=== PATIENT | female | born 1960 | race Caucasian/White ===

== ENCOUNTER 2016-11-14 15:11 | Emergency (ER) | payer OTHER ==
[~2016-11-14] VITALS: Ht 165.1 cm; Wt 68.0 kg
--- NOTE | 2016-11-14 16:48 | ED PSYCHIATRIC COMPLAINT ---
History of Present Illness General Chief Complaint: Psychiatric Related Complaint Stated Complaint: ? PTSD Source: patient Exam Limitations: no limitations Vital Signs & Intake/Output Vital Signs & Intake/Output Vital Signs Date Time Temp Pulse Resp B/P Pulse O2 O2 Flow FiO2 Ox Delivery Rate 11/15 1931 97.3 75 20 121/70 98 Room Air 11/14 1900 Room Air 11/14 1517 98.2 97 20 133/87 97 Room Air Allergies Coded Allergies: MDX - PCN (penicillin) (PCN (PENICILLIN)) (HIVES 11/23/12) Uncoded Allergies: ANOTHER ANTIBIOTIC (SEVERE GI UPSET 11/23/12) Reconcile Medications Hydroxyzine HCl 25 MG TABLET 1 TAB PO TID PRN anxiety Triage Note: PT STATES SHE HAS BEEN UNDER A LOT OF STRESS LATELY AND SHE THINKS SHE MAY HAVE PTSD. STATES SHE FEELS LIKE SHE IS GOING TO LOSE IT. PT DENIES SI/HI Triage Nurses Notes Reviewed? yes HPI: Patient presents for evaluation of anxiety. Patient states that she "has been struggling with trauma feelings". She states that she has been having intermittent episodes like this over the past 6 months. She sees a therapist and was prescribed propranolol but this does not seem to be helping. She states she had a severe episode today prompting her to be evaluated in the emergency department. She does somewhat reluctantly admit to suicidal ideation and insinuates she has had a plan but does not wish to talk about it. She states she has no real intent on suicide however. She denies homicidal ideation. She likewise denies alcohol or drug use. She is a nonsmoker. Symptoms have Become more and more severe. Nothing seems to make her feel better. Past History Travel History Traveled to [place] past 21 day No Medical History Any Pertinent Medical History? see below for history Gastrointestinal: GERD Surgical History Surgical History: non-contributory Psychosocial History What is your primary language Slovenian Tobacco Use: Never used ETOH Use: denies use Illicit Drug Use: denies illicit drug use Family History Hx Contributory? No Review of Systems Review of Systems Constitutional: Reports: no symptoms. EENTM: Reports: no symptoms. Respiratory: Reports: no symptoms. Cardiovascular: Reports: no symptoms. GI: Reports: no symptoms. Genitourinary: Reports: no symptoms. Musculoskeletal: Reports: no symptoms. Skin: Reports: no symptoms. Neurological/Psychological: Reports: see HPI. Hematologic/Endocrine: Reports: no symptoms. Immunologic/Allergic: Reports: no symptoms. All Other Systems: Reviewed and Negative Physical Exam Physical Exam General Appearance: see below Neurological/Psychiatric: see below Comments: General: Alert, calm, cooperative Head: Normocephalic, atraumatic Eyes: Normal inspection, no nystagmus, EOMI Ears: Normal inspection Nose: Normal inspection Throat: Moist mucosa Neck: Supple, no goiter Heart: Regular rate and rhythm, no murmurs rubs or gallops Lungs: Clear to auscultation bilaterally with good air entry Abdomen: Soft nontender nondistended, normal bowel sounds Chest: Nontender Extremities: Normal range of motion grossly, no tremors present, no cyanosis clubbing or edema of the upper extremities Neurologic: cranial nerves II through XII grossly intact, speech clear, gait normal Psychiatric: No apparent delusions or hallucinations, no pressured speech or thought blocking, depressed affect SAD PERSONS Done? deferred to crisis Progress Differential Diagnosis: depression, anxiety, bipolar, personality disorder Plan of Care: Orders Procedure Date/time Status Continuous Observation Monitor 11/14 1830 Active URINE DRUG SCREEN FOR ER ONLY 11/14 164 Complete ETHANOL 11/14 164 Complete CBC WITHOUT DIFFERENTIAL 11/14 164 Complete BASIC METABOLIC PANEL 11/14 164 Complete ED CRISIS PSYCH CONSULT 11/14 164 Active Current Medications Sig/Maria A Start time Last Medication Dose Stop Time Status Admin Hydroxyzine HCl 25 MG ONCE ONE 11/14 2044 UNVr (Atarax) 11/14 2045 Laboratory Tests 11/14/16 1725: Urine Opiates Screen < 100.00, Methadone Screen < 40, Barbiturate Screen < 60, Ur Phencyclidine Scrn < 6.00, Amphetamines Screen < 100, U Benzodiazepines Scrn < 85, Urine Cocaine Screen < 50, Urine Cannabis Screen < 5.00 11/14/16 1715: Anion Gap 14, Estimated GFR > 60, BUN/Creatinine Ratio 35.0 H, Glucose 94, Calcium 9.4, CBC w Diff NO MAN DIFF REQ, RBC 4.48, MCV 90.9, MCH 31.5 H, RDW 12.8, MPV 8.0, Gran % 58.2, Lymphocytes % 33.1, Monocytes % 7.7, Eosinophils % 0.6, Basophils % 0.4, Absolute Granulocytes 2.5, Absolute Lymphocytes 1.4, Absolute Monocytes 0.3, Absolute Eosinophils 0, Absolute Basophils 0, PUBS MCHC 34.7, Serum Alcohol < 10.0 Departure Departure Disposition: HOME OR SELF CARE Condition: Stable Clinical Impression Primary Impression: Anxiety disorder, unspecified Qualifiers: Anxiety disorder type: unspecified anxiety disorder Qualified Code: F41.9 - Anxiety disorder, unspecified Referrals: PATIENT HAS NO PRIMARY CARE DR (PCP/Family) Departure Forms: Customer Survey General Discharge Information Prescriptions: Current Visit Scripts Hydroxyzine HCl 1 TAB PO TID PRN anxiety #21 TAB
[2016-11-14 17:35] LABS: ABSOLUTE BASOPHIL COUNT 0 /CUMM (0.0-0.2); ABSOLUTE EOSINOPHIL COUNT 0 /CUMM (0.0-0.7); ABSOLUTE GRANULOCYTE CT 2.5 /CUMM (1.4-6.5); ABSOLUTE LYMPH COUNT 1.4 /CUMM (1.2-3.4); ABSOLUTE MONOCYTE COUNT 0.3 /CUMM (0.10-0.60); BASOPHIL % 0.4 % (0.0-2.0); EOSINOPHIL % 0.6 % (0-5); GRANULOCYTE % 58.2 % (42.2-75.2); HEMATOCRIT 40.7 % (37-47); MEAN CORPUSCULAR HGB 31.5 PG (27.0-31.0); MEAN CORPUSCULAR HGB CONC 34.7 G/DL (33.0-37.0); MEAN CORPUSCULAR VOLUME 90.9 FL (81.0-99.0); PLATELET COUNT 210 /CUMM (130-400); RBC DISTRIBUTION WIDTH 12.8 % (11.5-14.5); RED BLOOD CELL CT 4.48 /CUMM (4.20-5.40); WHITE BLOOD CELL COUNT 4.3 /CUMM (4.8-10.8)
[2016-11-14 19:32] VITALS: BP 121/70
[2016-11-14] MEDS ORDERED: HYDROXYZINE HCL25 M2 PO (20:42)
--- NOTE | 2016-11-14 21:05 | ED PSYCH CRISIS CONSULTATION ---
Crisis Consult Basic Assessment Date of Consult: 11/14/16 Responsible Person/Accompanied By: self/ Insurance Authorization: Insurance #1: Insurance name: OTOY Phone number: Policy number: [id number] Group number: [id number] Authorization number: ED Provider: Patient's ED Provider: AMALIA FERNANDEZ MD Primary Care Physician: Patient's PCP: PATIENT HAS NO PRIMARY CARE DR PCP's Phone Number: Current Psychiatrist: none Chief Complaint: Psychiatric Related Complaint Patient's Quote: a lot of unfortunate situations at once Present Illness: Pt is a 56 yo female presenting to [facility] this afternoon with reports of anxiety. Pt denies si. Pt reports being in bed with the flu over the past week and early this morning experienced a panic attack. Pt reports increased anxiety and some depression since 's "mid-life crisis" 4 yrs ago. She reports they are currently working things out and attending marriage therapy with easton aguirre PHD in [place]. She reports current prescription of propranol is not helpful. She also reports prior trial of ativan wasn't helpful. 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 She has a 23 yo son who has recently graduated from college and moved out. She denies etoh and drug use. she reports difficulty falling asleep due to anxious thoughts. Denies trauma history. Pt is alert and OX3. Pt presents as bright and easy to engage. Pt appears motivated for help. Pt reports interest in effective anxiety medication and outpatient therapy. Patient's Address: [address] [place] [address] Other Who Do You Live With? Spouse Family/Informants Interviewed: pt yovanny present and supportive . Allergies - Coded Allergies: MDX - PCN (penicillin) (PCN (PENICILLIN)) (HIVES 11/23/12) Uncoded Allergies: ANOTHER ANTIBIOTIC (SEVERE GI UPSET 11/23/12) Current Medications - Scheduled PRN Medications Hydroxyzine HCl 25 MG TABLET 1 TAB PO TID PRN anxiety #21 TAB Prescribed by AMALIA FERNANDEZ MD on 11/14/16 Laboratory Results: Laboratory Tests 11/14/16 1725: Urine Opiates Screen < 100.00, Methadone Screen < 40, Barbiturate Screen < 60, Ur Phencyclidine Scrn < 6.00, Amphetamines Screen < 100, U Benzodiazepines Scrn < 85, Urine Cocaine Screen < 50, Urine Cannabis Screen < 5.00 11/14/16 1715: Anion Gap 14, Estimated GFR > 60, BUN/Creatinine Ratio 35.0 H, Glucose 94, Calcium 9.4, CBC w Diff NO MAN DIFF REQ, RBC 4.48, MCV 90.9, MCH 31.5 H, RDW 12.8, MPV 8.0, Gran % 58.2, Lymphocytes % 33.1, Monocytes % 7.7, Eosinophils % 0.6, Basophils % 0.4, Absolute Granulocytes 2.5, Absolute Lymphocytes 1.4, Absolute Monocytes 0.3, Absolute Eosinophils 0, Absolute Basophils 0, PUBS MCHC 34.7, Serum Alcohol < 10.0 Past History Past Medical History Gastrointestinal: GERD Past Surgical History Surgical History: non-contributory Psychosocial History Strengths/Capabilities: pt research radio frequency technician for 35 yrs at [employer]/pt motivated for help Psychiatric Treatment History Psych Treatment Psychiatric Treatment Yes Inpatient Treatment No Outpatient Treatment Yes Location of Treatment [facility]on Aguirre PHD - [place] Reason for Treatment marriage counseling Dates of Treatment past 4 months Response to Treatment working on [email or web address] though continuous anziety Substance Use/Abuse History Drug Use/Abuse Substances Used/Abused No Substance Abuse Treatment Substance Abuse Treatment Past Substance Abuse [place] No Inpatient Treatment No Outpatient Treatment No Comments: denies drug and alcohol use Current Mental Status Mental Status Orientation: Person, Place, Situation Affect: Anxious, Sad Speech: WNL Neuro-vegetative: Appetite Decreased, Energy Decreased, Sleep Disturbance Appearance Appearance- Dress/Hygiene: hospital scrubs; well groomed; good eye contact; easily engaged Behaviors Thought Process: WNL Thought Content: WNL Memory: WNL Insight: WNL SI/HI Risk Assessment Past Suicidal Ideation/Attempts No Current Suicidal Ideation/Att No Past Homicidal Ideation/Att: No Current Homicidal Ideation/Attempts No Degree of Intent: None Risk Factors: high anxiety/distress Lethality Ratin (mild) PTSD Checklist PTSD Done? patient declined ED Management Sitter: Yes Restraints: No DSM5/PS Stressors/Medical Prob Diagnosis' (DSM 5, Stressors, Medical): Unspecified anxiety d/o (F41.9) marital issues parent illness Current GAF: 45 Comments: pt reporting increased anxiety/panic attacks. Primary prescribed Propranolol but she reports it is not helpful. Pt in marriage counseling and father recently diagnosed with terminal cancer. denies si. interested in an anti anxiety medication. Past experience with ativan was negative. Departure Disposition Psych Medical Clearance Date: 11/14/16 Medically Cleared at: 1999 Time Started: 2004 Time Ended: 2044 Psychiatrist Consulted: Carlo Wilson MD Date Disposition Established: 11/14/16 Time Disposition Established: 2049 Plan for Disposition - Modality: Outpatient Facility: [facility] Rationale for Disposition: Pt reports ongoing anxiety/panic attacks. Denies si/hi. [facility]. Pt will call in am to schedule intake. Pt discharged with prescription for hydroxyzine 25 mg TID as needed. Referrals PATIENT HAS NO PRIMARY CARE DR (PCP/Family)
== END 2016-11-14 21:04 ==
LOC: ERH 15:11
PROVIDERS: Emergency Medicine
DX: F41.9 Anxiety disorder, unspecified (principal)
CPT/HCPCS: 80307; G0463; G0480